=== PATIENT | female | born 1995 | race American Indian/Alaskan Native ===

== ENCOUNTER 2020-10-27 22:29 | Emergency (ER) | payer OTHER ==
[2020-10-27] MEDS ORDERED: FAMOTIDINE 20 MG/2 ML INJ IV ONE (22:41)
[2020-10-27] MEDS ORDERED: diphenhydrAMINE 50 MG/ML VIAL IV ONE (22:41)
[2020-10-27] MEDS ORDERED: methylPREDNISolone Sod Succinate 125 MG/2 ML INJ IV ONE (22:41)
[2020-10-27] MEDS ORDERED: EPINEPHrine/PF 1 MG/1 ML INJ ONE (22:50)
--- NOTE | 2020-10-27 22:53 | Emergency Department Report ---
HPI - General Chief Complaint: Allergic Reaction Time Seen by Provider: 10/27/20 22:48 - HPI HPI: Patient is a 25-year-old F [place] female who is presenting with allergic reaction. 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 Patient was traveling from vacation and stopped to the gas station to get a snack. She thought she picked of honey roasted peanuts but instead grabbed honey roasted cashews. She did put one in her mouth and then realized that this was not the correct nut. Patient immediately felt as though her throat was closing became short of breath and started having some swelling to her eyes. She denies any hives. States there is been no nausea vomiting. Patient states she tried to spit the night out however she already begun having the allergic reaction. ED Past Medical Hx - Past Medical History Previous Medical History?: No - Surgical History Past Surgical History?: No - Medications Home Medications: Home Medications Medication Instructions Recorded Confirmed Last Taken Type EPINEPHrine [Epipen] 0.3 mg IJ PRN #1 auto.injct 10/27/20 Unknown Rx Famotidine [Pepcid] 20 mg PO BID #10 tablet 10/27/20 Unknown Rx diphenhydrAMINE [Benadryl CAP] 25 mg PO Q8HR #10 capsule 10/27/20 Unknown Rx predniSONE [Deltasone] 20 mg PO QDAY #5 tab 10/27/20 Unknown Rx ED Review of Systems ROS: Stated complaint: ALLERGIC REACTION Other details as noted in HPI Comment: All other systems reviewed and negative Physical Exam - Physical Exam Vital Signs: Vital Signs 10/27/20 22:37 Temperature 98.1 F Pulse Rate 68 Respiratory 20 Rate Blood Pressure 130/89 [Right] O2 Sat by Pulse 99 Oximetry General: ED Physical Exam - General General appearance: alert, in no apparent distress - Head Head exam: Present: atraumatic, normocephalic - Eye Eye exam: Present: normal appearance - ENT ENT exam: Present: mucous membranes moist - Neck Neck exam: Present: normal inspection - Respiratory Respiratory exam: Present: normal lung sounds bilaterally. Absent: respiratory distress, wheezes, rales, rhonchi - Cardiovascular Cardiovascular Exam: Present: regular rate, normal rhythm, normal heart sounds. Absent: systolic murmur, diastolic murmur, rubs, gallop - GI/Abdominal GI/Abdominal exam: Present: soft, normal bowel sounds. Absent: distended, tenderness, guarding, rebound - Rectal Rectal exam: Present: deferred - Extremities Exam Extremities exam: Present: normal inspection - Back Exam Back exam: Present: normal inspection - Neurological Exam Neurological exam: Present: alert, oriented X3 - Psychiatric Psychiatric exam: Present: normal affect, normal mood - Skin Skin exam: Present: warm, dry, intact, normal color. Absent: rash ED Course Vital Signs 10/27/20 22:37 Temperature 98.1 F Pulse Rate 68 Respiratory 20 Rate Blood Pressure 130/89 [Right] O2 Sat by Pulse 99 Oximetry - Reevaluation(s) Reevaluation #1: 10/27/20 23:33 Patient given Benadryl Solu-Medrol Pepcid. She is feeling much improved after medications given. She has had no progression of her allergic reaction and is not in anaphylaxis. Patient is stable for discharge. Critical care attestation.: If time is entered above; I have spent that time in minutes in the direct care of this critically ill patient, excluding procedure time. ED Disposition Clinical Impression: Tree nut allergy, Acute allergic reaction Disposition: DC-01 TO HOME OR SELFCARE Is pt being admited?: No Does the pt Need Aspirin: No Condition: Stable Instructions: Food Choices for Tree Nut Allergy, Adult, Allergies, Adult, [id number], How to Use an Auto-Injector Pen Referrals: PRIMARY CARE, [Primary Care Provider] - 3-5 Days Time of Disposition: 23:36
[2020-10-28 00:14] VITALS: BP 121/82
== END 2020-10-28 00:18 | disposition home or self-care (01) ==
LOC: ED 22:29
DX: T78.1XXA Other adverse food reactions, not elsewhere classified, initial encounter (principal); Z79.899 Other long term (current) drug therapy; Z91.018 Allergy to other foods; X58.XXXA Exposure to other specified factors, initial encounter
CPT/HCPCS: 96374; 96375; 99282; J1200; J2930; J0171